=== PATIENT | male | born 1955 | race Caucasian/White ===

== ENCOUNTER 2018-10-16 21:03 | Emergency (ER) | payer BC ==
[~2018-10-16] VITALS: Ht 185.4 cm; Wt 95.2 kg
[2018-10-16 21:08] VITALS: BP 162/98
== END 2018-10-16 22:46 | disposition home or self-care (01) ==
LOC: ED 22:30
DX: S06.0X0A Concussion without loss of consciousness, initial encounter (principal); S00.83XA Contusion of other part of head, initial encounter; G89.11 Acute pain due to trauma; M54.2 Cervicalgia; M13.88 Other specified arthritis, other site; Y04.8XXA Assault by other bodily force, initial encounter; Y93.89 Activity, other specified; Y92.89 Other specified places as the place of occurrence of the external cause; Y99.8 Other external cause status
CPT/HCPCS: 70450; 99284